=== PATIENT | female | born 1990 ===

== ENCOUNTER 2017-05-06 19:29 | Emergency (ER) | payer SELFPAY ==
[2017-05-06 19:49] VITALS: BP 106/51; PULSE 76; RESP 16; TEMP 98.2; O2SAT 100
--- NOTE | 2017-05-06 20:51 | ED PDOC ---
HPI: Female Pain Time Seen by Provider: 05/06/17 20:09 Chief Complaint (Nursing): Female Genitourinary Chief Complaint (Provider): vaginal bleeding History Per: Patient History/Exam Limitations: no limitations Additional Complaint(s): 26yo F in ED for eval of heavy vaginal clot noted yesterday-her first day of menstrual was yesterday. normally with regular menstrual. now with cramping to RLQ no nausea no vomiting no back pain. now with normal vaginal bleeding. Abnormal Vaginal Bleeding: No Past Medical History Reviewed: Historical Data, Nursing Documentation, Vital Signs Vital Signs: Last Vital Signs Temp 98.2 F 05/06/17 19:44 Pulse 76 05/06/17 19:44 Resp 16 05/06/17 19:44 BP 106/51 L 05/06/17 19:44 Pulse Ox 100 05/06/17 19:44 - Medical History PMH: No Chronic Diseases - Surgical History Surgical History: - Family History Family History: States: No Known Family Hx - Home Medications Home Medications: Ambulatory Orders Medication Instructions Recorded Famotidine [Pepcid] 20 mg PO BID #28 tab 05/08/16 Ondansetron [Zofran] 4 mg PO Q8H #9 tab 05/08/16 Naproxen [Naprosyn] 500 mg PO BID #20 tab 05/06/17 - Allergies Allergies/Adverse Reactions: Allergies Allergy/AdvReac Type Severity Reaction Status Date / Time No Known Allergies Allergy Verified 05/06/17 19:44 Review of Systems ROS Statement: Except As Marked, All Systems Reviewed And Found Negative Constitutional: Negative for: Fever, Chills Musculoskeletal: Negative for: Back Pain, Hand Pain Physical Exam - Reviewed Nursing Documentation Reviewed: Yes Vital Signs Reviewed: Yes - Physical Exam Appears: Positive for: Well, Non-toxic, No Acute Distress Head Exam: Positive for: ATRAUMATIC, NORMAL INSPECTION, NORMOCEPHALIC Skin: Positive for: Normal Color, Warm, DRY Eye Exam: Positive for: EOMI, Normal appearance, PERRL Cardiovascular/Chest: Positive for: Regular Rate, Rhythm Respiratory: Positive for: CNT, Normal Breath Sounds Neurologic/Psych: Positive for: Alert, Oriented - Laboratory Results Urine POC: Negative Urine dip results: Positive for: Leukocyte Esterase, Blood, Nitrate, Ketones, Glucose, Bilirubin, Protein - ECG O2 Sat by Pulse Oximetry: 100 Medical Decision Making Medical Decision Making: Pt with negative and negative UIDIP. Pt advised to have pain control at home, given medication in ED for pain. Disposition - Clinical Impression Clinical Impression: Menstrual cramp - Patient ED Disposition Is Patient to be Admitted: No Counseled Patient/Family Regarding: Diagnosis, Need For Followup, Rx Given - Disposition Disposition: Routine/Home Disposition Time: 20:53 Condition: STABLE Prescriptions: Naproxen [Naprosyn] 500 mg PO BID #20 tab Instructions: Menstruation (ED) Print Language: AMHARIC
== END 2017-05-06 21:36 | disposition home or self-care (01) ==
LOC: H.ER 19:29
DX: N94.6 Dysmenorrhea, unspecified (principal)